=== PATIENT | female | born 1985 | race Two or more races ===

== ENCOUNTER 2023-09-18 11:49 | Emergency (ER) | payer MEDICAID, OTHER ==
[~2023-09-18] VITALS: Ht 157.5 cm; Wt 83.0 kg
[2023-09-18 12:31] VITALS: BP 129/74; PULSE 81; RESP 16; O2SAT 98
[2023-09-18] MEDS ORDERED: ACYC1TAB3 PO (13:25)
[2023-09-18] MEDS ORDERED: PRED20TA2 PO (13:25)
[2023-09-18] MEDS ORDERED: AUG875T PO (13:25)
== END 2023-09-18 13:54 | disposition home or self-care (01) ==
LOC: ER 11:49
DX: G51.0 Bell's palsy (principal); H66.91 Otitis media, unspecified, right ear; Z79.899 Other long term (current) drug therapy

== ENCOUNTER 2024-07-06 21:01 | Emergency (ER) | payer MEDICAID ==
[~2024-07-06] VITALS: Ht 157.5 cm; Wt 83.2 kg
[~2024-07-06 21:01] MED LIST: ACYC1TAB3 PO; AUG875T PO; PRED20TA2 PO
--- NOTE | 2024-07-06 21:48 | ED.PDOC ---
History of Present Illness HPI Comments 39-year-old female with no reported PMHx presents to the ED with a c/o weakness, fatigue, and palpitations x3 weeks. Patient states that she has been feeling worsening generalized weakness over the past 3 weeks that has also started to develop into fatigue. Patient reports that she is experiencing increasing SOB especially upon exertion. Patient denies any known sick contacts at home. Patient is tachycardic upon auscultation. No other symptoms or modifying factors present at this time. Time Seen by MD: 21:44 Primary Care Provider: ROSALES Reviewed Notes: Nurses Notes, Medications, Allergies Allergies: Coded Allergies: NO KNOWN ALLERGIES (Unverified , 07/06/24) Home Meds Active Scripts Acyclovir (Acyclovir) 800 Mg Tab, 800 MG PO TID, #21 TAB Prov:AMAURY BAUTISTA 09/18/23 Prednisone (Prednisone) 20 Mg Tab, 60 MG PO DAILY, #18 TAB Prov:AMAURY BAUTISTA 09/18/23 Amoxicillin & Pot Clavulanate (AUGMENTIN TABLET) 875 Mg Tb, 875 MG PO BID, #20 TAB Prov:AMAURY BAUTISTA 09/18/23 Information Source: Patient Mode of Arrival: Ambulatory Severity: Moderate Timing: Weeks Duration: Since onset Prehospital treatment: None Past Medical History PAST MEDICAL HISTORY: Denies Surgical History: Cholecystectomy 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 History Family History Family History: Reviewed,noncontributory to illness Social History Smoker: Non-Smoker Alcohol: Denies ETOH Use Drugs: Denies Drug Use Lives In: Home Constitutional: reports: fatigue, weakness; denies: chills, diaphoresis, fever, malaise, sweats, others EENTM: denies: blurred vision, double vision, ear bleeding, ear discharge, ear drainage, ear pain, ear ringing, eye pain, eye redness, hearing loss, mouth pain, mouth swelling, nasal discharge, nose bleeding, nose congestion, nose pain, photophobia, tearing, throat pain, throat swelling, voice changes, others Respiratory: reports: shortness of breath; denies: cough, hemoptysis, orthopnea, SOB at rest, SOB with excertion, stridor, wheezing, others Cardiovascular: reports: palpitations; denies: chest pain, dizzy spells, diaphoresis, Dyspnea on exertion, edema, irregular heart beat, left arm pain, lightheadedness, PND, syncope, others Gastrointestinal: denies: abdomen distended, abdominal pain, blood streaked bowels, constipated, diarrhea, dysphagia, difficulty swallowing, hematemesis, melena, nausea, poor appetite, poor fluid intake, rectal bleeding, rectal pain, vomiting, others Genitourinary: denies: abnormal vagina bleeding, burning, dyspareunia, dysuria, flank pain, frequency, hematuria, incontinence, pain, , vagina discharge, urgency, others Neurological: denies: dizziness, fainting, headache, left sided numbness, left sided weakness, numbness, paresthesia, pre-existing deficit, right sided numbness, right sided weakness, seizure, speech problems, tingling, tremors, weakness, others Musculoskeletal: denies: back pain, gout, joint pain, joint swelling, muscle pain, muscle stiffness, neck pain, others Integumetry: denies: bruises, change in color, change in hair/nails, dryness, laceration, lesions, lumps, rash, wounds, others Allergic/Immunocompromised: denies: Difficulty Healing, Frequent Infections, Hives, Itching, others Hematologic/Lymphatic: denies: anemia, blood clots, easy bleeding, easy bruising, swollen glands, others Endocrine: denies: excessive hunger, excessive sweating, excessive thirst, excessive urination, flushing, intolerance to cold, intolerance to heat, unexp lained weight gain, unexplained weight loss, others Psychiatric: denies: anxiety, bipolar disorder, depression, hopeless, panic disorder, schizophrenia, sleepless, suicidal, others All Other Systems: Reviewed and Negative Physical Exam General Appearance: No Apparent Distress, Normal HEENT: Normal ENT Inspection, Pharynx Normal, TMs Normal Neck: Full Range of Motion, Non-Tender, Normal, Normal Inspection Respiratory: Chest Non-Tender, Lungs Clear, No Accessory Muscle Use, No Respiratory Distress, Normal Breath Sounds Cardiovascular: No Edema, No JVD, No Murmur, No Gallop, Normal Peripheral Pulse s, Tachycardia Breast Exam: Deferred Gastrointestinal: No Organomegaly, Non Tender, No Pulsatile Mass, Normal Bowel Sounds, Soft Genitalia: Deferred Pelvic: Deferred Rectal: Deferred Extremities: No calf tenderness, Normal capillary refill, Normal inspection, Normal range of motion, Non-tender, No pedal edema Musculoskeletal : Apperance: Normal Neurologic: Alert, nut cracker II-XII nml as Tested, No Motor Deficits, Normal Affect, Normal Mood, No Sensory Deficits Cerebellar Function: Normal Reflexes: Normal Skin: Dry, Normal Color, Warm Lymphatic: No Adenopathy Was a procedure done? Was a procedure done?: No Differential Dx Considerations may include: OK, costochondritis, panic attack X-Ray, Labs, Meds, VS Vital Signs Date Time Temp Pulse Resp B/P (MAP) Pulse Ox O2 Delivery O2 Flow Rate FiO2 07/06/24 22:25 122 20 98 Room Air* 0 21 07/06/24 22:25 98.0 122 20 120/80 (93) 98 98.0 07/06/24 21:39 104 07/06/24 21:20 98.0 127 22 126/82 (97) 99 98.0 Lab Test 07/06/24 22:00 Range/Units White Blood Count 7.9 4.4-10.8 10^3/uL Red Blood Count 4.82 4.0-5.20 10^6/uL Hemoglobin 13.8 12.2-16.2 g/dL Hematocrit 41.1 36.0-46.0 % Mean Corpuscular Volume 85.3 80.0-100.0 fL Mean Corpuscular Hemoglobin 28.7 28.0-32.0 pg Mean Corpuscular Hemoglobin Concent 33.6 32.0-36.0 g/dL Red Cell Distribution Width 13.4 11.8-14.3 % Platelet Count 213 140-450 10^3/uL Mean Platelet Volume 10.0 6.9-10.8 fL Neutrophils (%) (Auto) 62.8 37.0-80.0 % Lymphocytes (%) (Auto) 28.7 10.0-50.0 % Monocytes (%) (Auto) 7.1 0.0-12.0 % Eosinophils (%) (Auto) 0.7 0.0-7.0 % Basophils (%) (Auto) 0.7 0.0-2.0 % Neutrophils # (Auto) 5.0 1.6-8.6 10 ^3/uL Lymphocytes # (Auto) 2.3 0.4-5.4 10 ^3/uL Monocytes # (Auto) 0.6 0-1.3 10 ^3/uL Eosinophils # (Auto) 0.1 0-0.8 10 ^3/uL Basophils # (Auto) 0.1 0-0.2 10 ^3/uL Nucleated Red Blood Cells 0.1 % Sodium Level 141 136-145 mmol/L Potassium Level 3.3 L 3.5-5.1 mmol/L Chloride Level 111 H 98-107 mmol/L Carbon Dioxide Level 18 L 20-31 mmol/L Anion Gap 12 5-15 Blood Urea Nitrogen 19 9-23 mg/dL Creatinine 0.86 0.550-1.02 mg/dL Glomerular Filtration Rate Calc 88 >90 mL/min BUN/Creatinine Ratio 22.1 H 10.0-20.0 Serum Glucose 103 74-106 mg/dL Calcium Level 9.9 8.7-10.4 mg/dL Total Bilirubin 0.6 0.2-1.0 mg/dL Aspartate Amino Transferase (AST) 17 13-40 U/L Alanine Aminotransferase (ALT) 17 7-40 U/L Alkaline Phosphatase 63 46-116 U/L Troponin I High Sensitivity < 3 L </=34 ng/L Total Protein 7.5 5.7-8.2 g/dL Albumin 4.3 3.2-4.8 g/dL Current Medications Medications (Trade) Dose Ordered Sig/Chicho Route Start Time Stop Time Status Last Admin Lorazepam (Ativan Inj) 1 mg ONCE ONCE IM 07/06/24 22:00 07/06/24 22:01 DC 07/06/24 22:00 X-Ray, Labs, Meds, VS Comment Imaging: X-rays and CT scans were reviewed and interpreted by this provider, imaging shows no fractures and no pathological disease. Pending radiology review. Laboratory: Labs reviewed and interpreted by this provider. No significant abnormalities noted. Patient has prior medical visits reviewed. Med reconciliation performed Vital signs reviewed Patient had good relief from Ativan. Time of 1ST Reevaluation: 22:14 Reevaluation 1ST: Improved Patient Education/Counseling: Diagnosis, Treatment, Need For Follow Up (Follow up with PCP next available appointment. Return to the emergency department if symptoms worsen.) Family Education/Counseling: No Family Present Departure 1 Departure Time of Disposition: 01:20 Impression: Primary Impression: Anxiety Disposition: 01 HOME / SELF CARE / HOMELESS Condition: Fair e-Prescriptions Alprazolam (Xanax) 0.5 Mg Tb 1 TAB PO BID PRN, #20 TAB Prov: SAVITA HARVEY 07/07/24 Discharged With: Self Critical Care Note Critical Care Time?: No Stability Stability form required: No I personally scribed for SAVITA HARVEY ([email or web address]) on 07/06/24 at 21:48. Electronically submitted by Norris Roy ([email or web address]). SAVITA HARVEY July 06, 2024 21:48
[2024-07-06] MEDS: LORazepam 2MG/ML-1ML VIAL IM ONE (22:00)
[2024-07-06 22:17] LABS: Basophils # (auto) 0.1 10 ^3/uL (0-0.2); Basophils % (auto) 0.7 % (0.0-2.0); Eosinophils # (auto) 0.1 10 ^3/uL (0-0.8); Eosinophils % (auto) 0.7 % (0.0-7.0); Hematocrit 41.1 % (36.0-46.0); Hemoglobin 13.8 g/dL (12.2-16.2); Lymphocytes # (auto) 2.3 10 ^3/uL (0.4-5.4); Lymphocytes % (auto) 28.7 % (10.0-50.0); Mean Corpuscular Hemoglobin 28.7 pg (28.0-32.0); Mean Corpuscular Hgb Conc. 33.6 g/dL (32.0-36.0); Mean Corpuscular Volume 85.3 fL (80.0-100.0); Monocytes # (auto) 0.6 10 ^3/uL (0-1.3); Monocytes % (auto) 7.1 % (0.0-12.0); Neutrophils % (auto) 62.8 % (37.0-80.0); Nucleated Red Blood Cells % 0.1 %; Platelet Count (auto) 213 10^3/uL (140-450); Red Blood Cells 4.82 10^6/uL (4.0-5.20); Red Cell Distribution Width 13.4 % (11.8-14.3); White Blood Cell 7.9 10^3/uL (4.4-10.8)
[2024-07-06 22:25] VITALS: BP 120/80; PULSE 122; RESP 20; TEMP 98; O2SAT 98
[2024-07-06 22:32] LABS: Alanine Aminotransferase 17 U/L (7-40); Albumin 4.3 g/dL (3.2-4.8); Alkaline Phosphatase 63 U/L (46-116); Anion Gap 12 (5-15); Aspartate Aminotransferase 17 U/L (13-40); BUN/Creatinine Ratio 22.1 (10.0-20.0); Blood Urea Nitrogen 19 mg/dL (9-23); Calcium 9.9 mg/dL (8.7-10.4); Glucose 103 mg/dL (74-106); Sodium 141 mmol/L (136-145); Total Protein 7.5 g/dL (5.7-8.2)
[2024-07-06 22:33] LABS: Bilirubin, Total 0.6 mg/dL (0.2-1.0)
[2024-07-06 22:53] LABS: Carbon Dioxide 18 mmol/L (20-31); Chloride 111 mmol/L (98-107); Potassium 3.3 mmol/L (3.5-5.1)
--- NOTE | 2024-07-06 23:09 | DVH ---
CHEST RADIOGRAPH Indication: dizzy Technique: Single frontal view of the chest was obtained COMPARISON: None FINDINGS: Lines and Tubes: None Lungs: Clear Pleura: No effusion. No pneumothorax. Cardiomediastinal contours: Unremarkable IMPRESSION: No abnormality demonstrated.
--- NOTE | 2024-07-06 23:53 | ECG ---
[facility] Test Date: 2024-07-06 Test Time: 21:39:49 Pat Name: ENMANUEL MCWILLIAMS Department: ED Room: Gender: F Business Intelligence Engineer: DORA : 1985 Requested By: SAVITA HARVEY Order Number: [id number] Reading MD: Measurements Intervals [place] Rate: 104 P: 47 LA: 151 QRS: 95 QRSD: 77 T: 46 QT: 327 QTc: 430 Interpretive Statements Sinus tachycardia Borderline right axis deviation Please click the below link to view image of tracing.
[2024-07-07] MEDS ORDERED: ALPR0.5T PO (01:21)
== END 2024-07-07 02:08 | disposition home or self-care (01) ==
LOC: ER 21:01
DX: F41.9 Anxiety disorder, unspecified (principal); Z90.49 Acquired absence of other specified parts of digestive tract
CPT/HCPCS: 36415; 71045; 80053; 84484; 85025; 93005; 96372; 99285; J2060

== ENCOUNTER 2024-07-15 22:40 | Inpatient (IN) | payer MEDICAID ==
[~2024-07-15] VITALS: Ht 157.5 cm; Wt 86.8 kg
[~2024-07-15 22:40] MED LIST changes: +ALPR0.5T PO
--- NOTE | 2024-07-15 23:41 | ED.PDOC ---
General HPI Comments HPI: Poor Historian. 39-year-old female presents to emergency department for two day history of right flank pain constant radiating to the suprapubic area associated with nausea and chills.. Patient is suspects she has a UTI. She has burning with urination and chills. She is tachycardic in triage. Appears uncomfortable. Patient states having similar symptoms in the past which was due to UTI. Past Medical History: Right kidney poor function. Past Surgical History: Cholecystectomy REVIEW OF SYSTEMS: CONSTITUTIONAL: Denies acute: fever, diaphoresis, HEAD: Denies acute: headache, photophobia Eyes: Denies acute: Double vision, vision loss, eye pain, eye discharge. EARS: Denies acute: tinnitus, hearing loss, ear discharge, ear pain, THROAT: Denies acute: sore throat, swelling, difficulty swallowing , pain with swallowing, change in voice. NECK: Denies acute: neck pain, neck swelling, stiff neck. HEART: Denies acute : chest pain, palpitations, LUNGS: Denies acute: SOB, wheezing, cough, hemoptysis ABDOMEN: Denies acute: Vomiting, diarrhea, melena , hematemesis, hematochezia SKIN: Denies acute: rash, redness, lesions, itchiness. EXTREMITIES: Denies acute: calf pain, numbness, tingling, weakness, denies pain in extremity. Denies acute: Low back pain. Neuro: Denies acute: focal neurological deficit, motor or sensory focal neurological deficit, tremors, seizure like activity, confusion, dizziness, change in mental status, loss of bowel or bladder function, cauda equina like symptoms. : Denies acute: hematuria, increase in urinary frequency. PSYCH: Denies acute: hallucination, suicidal ideation, homicidal ideation. FEMALE: Denies acute: abnormal vaginal bleeding, foul odor, unusual discharge. PHYSICAL EXAM: General: -----moderate---acute distress, awake and alert. Head: normocephalic, atraumatic. Neck: supple, trachea is midline, no swelling. Throat: Normal phonation. Eyes:, no erythema, no purulent discharge, no proptosis, no icterus. Heart: regular tachycardia, no significant murmur appreciated. Lungs: no apparent respiratory distress, Able to speak in full sentences. No wheezing, no rhonchi, no crackles. No stridors Clear to auscultation bilaterally. Abdomen: Suprapubic tender to palpation, non distended, soft, no guarding, no rebound, + bowel sounds. Neuro: Awake, Alert, oriented to name, self, situation, follows commands GCS=15. Speech is normal. Skin: no petechia, no purpura, no cyanosis, non-pale, not jaundice. Lower extremities: --no - Pitting edema no deformity, no focal swelling, no calf TTP. Makes eye contact. moves all four extremities. Face: no apparent facial droop. Right CVA tenderness to percussion Ambulating in the ED independently. ED COURSE: Time Seen by MD: 23:29 Primary Care Provider: ROSALES Reviewed notes: Nurses Notes, Medications, Allergies Allergies: Coded Allergies: NO KNOWN ALLERGIES (Unverified , 07/06/24) Home Meds Active Scripts Alprazolam (Xanax) 0.5 Mg Tb, 1 TAB PO BID PRN, #20 TAB Prov:SAVITA HARVEY 07/07/24 Acyclovir (Acyclovir) 800 Mg Tab, 800 MG PO TID, #21 TAB Prov:AMAURY BAUTISTA 09/18/23 Prednisone (Prednisone) 20 Mg Tab, 60 MG PO DAILY, #18 TAB Prov:AMAURY BAUTISTA 09/18/23 Amoxicillin & Pot Clavulanate (AUGMENTIN TABLET) 875 Mg Tb, 875 MG PO BID, #20 TAB Prov:AMAURY BAUTISTA 09/18/23 Information Source: Patient Past Medical History PAST MEDICAL HISTORY: Denies Surgical History: Cholecystectomy 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 Was a procedure done?: No Differential Diagnosis Kidney stone (Female): Other (Flank Pain;DDX include Nephrolethiasis, obstructive uropathy, kidney cancer, renal infarct, intraabdominal neoplasm, lower lobe pneumonia, retroperitoneal hemorrhage, pancreatitis, aneurysm, dissection, musculoskeletal, rib contusion/trauma, hematoma, PYLONEPHRITIS, muscle strain, spinal disease. IN A FEMALE) X-Ray, Labs, Meds, VS Vital Signs Date Time Temp Pulse Resp B/P (MAP) Pulse Ox O2 Delivery O2 Flow Rate FiO2 07/16/24 00:57 102 20 98 Room Air 07/16/24 00:57 102 20 97 Room Air* 0 21 07/16/24 00:57 97.6 103 20 94/66 (75) 98 97.6 07/16/24 00:05 98.1 129 18 123/70 (87) 98 98.1 Lab Test 07/15/24 23:40 07/15/24 23:31 Range/Units White Blood Count 9.0 4.4-10.8 10^3/uL Red Blood Count 4.94 4.0-5.20 10^6/uL Hemoglobin 14.3 12.2-16.2 g/dL Hematocrit 42.3 36.0-46.0 % Mean Corpuscular Volume 85.7 80.0-100.0 fL Mean Corpuscular Hemoglobin 28.9 28.0-32.0 pg Mean Corpuscular Hemoglobin Concent 33.7 32.0-36.0 g/dL Red Cell Distribution Width 13.4 11.8-14.3 % Platelet Count 174 140-450 10^3/uL Mean Platelet Volume 10.1 6.9-10.8 fL Neutrophils (%) (Auto) 86.7 H 37.0-80.0 % Lymphocytes (%) (Auto) 8.7 L 10.0-50.0 % Monocytes (%) (Auto) 4.5 0.0-12.0 % Eosinophils (%) (Auto) 0.0 0.0-7.0 % Basophils (%) (Auto) 0.1 0.0-2.0 % Neutrophils # (Auto) 7.8 1.6-8.6 10 ^3/uL Lymphocytes # (Auto) 0.8 0.4-5.4 10 ^3/uL Monocytes # (Auto) 0.4 0-1.3 10 ^3/uL Eosinophils # (Auto) 0 0-0.8 10 ^3/uL Basophils # (Auto) 0 0-0.2 10 ^3/uL Nucleated Red Blood Cells 0.0 % Sodium Level 137 136-145 mmol/L Potassium Level 3.1 L 3.5-5.1 mmol/L Chloride Level 105 98-107 mmol/L Carbon Dioxide Level 21 20-31 mmol/L Anion Gap 11 5-15 Blood Urea Nitrogen 9 9-23 mg/dL Creatinine 1.04 H 0.550-1.02 mg/dL Glomerular Filtration Rate Calc 70 >90 mL/min BUN/Creatinine Ratio 8.7 L 10.0-20.0 Serum Glucose 109 H 74-106 mg/dL Lactic Acid Level 1.2 0.4-2.0 mmol/L Calcium Level 9.3 8.7-10.4 mg/dL Magnesium Level 1.9 1.6-2.6 mg/dL Total Bilirubin 1.2 H 0.2-1.0 mg/dL Aspartate Amino Transferase (AST) 26 13-40 U/L Alanine Aminotransferase (ALT) 24 7-40 U/L Alkaline Phosphatase 67 46-116 U/L Troponin I High Sensitivity 6 </=34 ng/L Total Protein 7.9 5.7-8.2 g/dL Albumin 4.6 3.2-4.8 g/dL Lipase 34 12-53 U/L Urine Color Pending Urine Clarity Pending Urine pH Pending Urine Specific Coden Pending Urine Protein Pending Urine Ketones Pending Urine Blood Pending Urine Nitrite Pending Urine Bilirubin Pending Urine Urobilinogen Pending Urine Leukocyte Esterase Pending Urine RBC Pending Urine Microscopic WBC Pending Urine Squamous Epithelial Cells Pending Urine Bacteria Pending Urine Glucose Pending [place] [id number] Ph: [phone] DIAGNOSTIC IMAGING Diagnostic Imaging Report : [id number] Signed PATIENT: ENMANUEL SHELLACCT: [id number] UNIT: [id number] : 1985 LOC: ER ROOM / BED: / AGE / SEX: 39 / F ADM STATUS: REG ER SERVICE [id number] ORDERING PHYSICIAN: ALEXANDR BLACKBURN DO PROCEDURE(s): ABPL - CT AB PEL WO CON-NO ORAL OR IV REASON: tachy, flank pain, urinary symptoms chills ORDER NUMBER(s): [id number], ACCESSION NUMBER(s): [id number] Exam: CT CT AB PEL WO CON-NO ORAL OR IV History: tachy, flank pain, urinary symptoms chills Comparison Study: None Technique: Multidetector spiral CT of the abdomen was performed from lung bases to pubic symphysis. Imaging was performed without IV contrast. Axial, coronal and sagittal multiplanar reformats were obtained from the axial data set by the technologist. Radiation Dose : 1. Abdomen/Pelvis: CTDIvol mGy, DLP mGy*cm. Findings: Evaluation of solid organs is limited due to lack of intravenous contrast use. Lung Bases: No abnormality demonstrated. Liver: Liver is normal in size. No focal lesions noted. Gallbladder and Biliary Tree: Cholecystectomy. No biliary ductal dilatation. Spleen: No abnormality demonstrated. Pancreas: No abnormality demonstrated. Adrenal Glands: No abnormality demonstrated. Kidneys: No abnormality demonstrated in the left kidney. Atrophic right kidney. Bladder: Grossly unremarkable for degree of distention. Bowel: Stomach appears grossly unremarkable. No abnormally dilated or thick- walled loops of large or small bowel noted. Appendix not visualized. Ascites: Absent Lymphadenopathy: No evidence of lymphadenopathy. Abdominal Wall and Mesentery: Unremarkable. Vasculature: Unremarkable. Pelvic Organs: Unremarkable. Musculoskeletal: No bony lesions or fracture. IMPRESSION: No acute abdominal or pelvic findings. Radiation optimization: All CT scans at this facility use at least one of these dose optimization techniques: automated exposure control mA and/or kV adjustment per patient size (includes targeted exams where dose is matched to clinical indication) or iterative reconstruction. ATED BY: PAUL MCARTHUR MD DICTATED DATE/TIME: 07/16/2436 SIGNED BY: PAUL MCARTHUR MD SIGNED DATE/TIME: 07/16/2436 CC: Time of 1ST Reevaluation: 01:15 Reevaluation 1ST: Improved Patient Education/Counseling: Diagnosis, Treatment Family Education/Counseling: Other Comments Patient presented with the above HPI.-flank pain abdominal pain and urinary symptoms and tachycardia and chills-----workup was initiated. patient was found with the above mentioned diagnosis. the following medications were ordered: please refer to order lists of meds and tests obtained by myself Dr. Blackburn. Patient ED course and VS have been stabilized. Patient has been reassessed in the ED and remained in a stable condition. Pertinent incidental findings were discussed with the patient and/or family. Patient/family voices understanding and is agreeable with plan. Patient has been observed in the ED adequate length of time to insure improvement/stability. Escalation of care considered: Consideration of escalation to observation or admission Patient clinically appears to have pyelonephritis. Antibiotics and fluids were initiated. Patient was ADMITTED to the medicine team for further evaluation and treatment of their presentation. All the reports of any imaging studies that were ordered by myself were reviewed by myself. Departure 1 Departure Time of Disposition: 23:41 Impression: Primary Impression: Right flank pain Additional Impressions: Cystitis Pyelonephritis Hypokalemia Disposition: ADMITTED INPATIENT Admit to: Tele Condition: Guarded Discharged With: Self Critical Care Note Critical Care Time?: Yes (35 min-critical care time only) ALEXANDR BLACKBURN DO July 15, 2024 23:41
[2024-07-16] VITALS (10 sets, daily range): BP systolic 90–119; BP diastolic 46–69; PULSE 72–112; RESP 16–30; TEMP 97.5–101.2; O2SAT 97–99
[2024-07-16 00:31] LABS: Basophils # (auto) 0 10 ^3/uL (0-0.2); Basophils % (auto) 0.1 % (0.0-2.0); Eosinophils # (auto) 0 10 ^3/uL (0-0.8); Hematocrit 42.3 % (36.0-46.0); Hemoglobin 14.3 g/dL (12.2-16.2); Lymphocytes # (auto) 0.8 10 ^3/uL (0.4-5.4); Lymphocytes % (auto) 8.7 % (10.0-50.0); Mean Corpuscular Hemoglobin 28.9 pg (28.0-32.0); Mean Corpuscular Hgb Conc. 33.7 g/dL (32.0-36.0); Mean Corpuscular Volume 85.7 fL (80.0-100.0); Monocytes # (auto) 0.4 10 ^3/uL (0-1.3); Monocytes % (auto) 4.5 % (0.0-12.0); Neutrophils # (auto) 7.8 10 ^3/uL (1.6-8.6); Neutrophils % (auto) 86.7 % (37.0-80.0); Platelet Count (auto) 174 10^3/uL (140-450); Red Blood Cells 4.94 10^6/uL (4.0-5.20); Red Cell Distribution Width 13.4 % (11.8-14.3)
--- NOTE | 2024-07-16 00:39 | DVH ---
Exam: CT CT AB PEL WO CON-NO ORAL OR IV History: tachy, flank pain, urinary symptoms chills Comparison Study: None Technique: Multidetector spiral CT of the abdomen was performed from lung bases to pubic symphysis. Imaging was performed without IV contrast. Axial, coronal and sagittal multiplanar reformats were ob tained from the axial data set by the technologist. Radiation Dose : 1. Abdomen/Pelvis: CTDIvol mGy, DLP mGy*cm. Findings: Evaluation of solid organs is limited due to lack of intravenous contrast use. Lung Bases: No abnormality demonstrated. Liver: Liver is normal in size. No focal lesions noted. Gallbladder and Biliary Tree: Cholecystectomy. No biliary ductal dilatation. Spleen: No abnormality demonstrated. Pancreas: No abnormality demonstrated. Adrenal Glands: No abnormality demonstrated. Kidneys: No abnormality demonstrated in the left kidney. Atrophic right kidney. Bladder: Grossly unremarkable for degree of distention. Bowel: Stomach appears grossly unremarkable. No abnormally dilated or thick-walled loops of large or small bowel noted. Appendix not visualized. Ascites: Absent Lymphadenopathy: No evidence of lymphadenopathy. Abdominal Wall and Mesentery: Unremarkable. Vasculature: Unremarkable. Pelvic Organs: Unremarkable. Musculoskeletal: No bony lesions or fracture. IMPRESSION: No acute abdominal or pelvic findings. Radiation optimization: All CT scans at this facility use at least one of these dose optimization shania hniques: automated exposure control mA and/or kV adjustment per patient size (includes targeted exam s where dose is matched to clinical indication) or iterative reconstruction.
[2024-07-16 00:49] LABS: Alanine Aminotransferase 24 U/L (7-40); Albumin 4.6 g/dL (3.2-4.8); Alkaline Phosphatase 67 U/L (46-116); Anion Gap 11 (5-15); Aspartate Aminotransferase 26 U/L (13-40); BUN/Creatinine Ratio 8.7 (10.0-20.0); Calcium 9.3 mg/dL (8.7-10.4); Carbon Dioxide 21 mmol/L (20-31); Chloride 105 mmol/L (98-107); Lipase 34 U/L (12-53); Magnesium 1.9 mg/dL (1.6-2.6); Sodium 137 mmol/L (136-145); Total Protein 7.9 g/dL (5.7-8.2)
[2024-07-16 00:50] LABS: Bilirubin, Total 1.2 mg/dL (0.2-1.0)
[2024-07-16 00:52] LABS: Blood Urea Nitrogen 9 mg/dL (9-23); Glucose 109 mg/dL (74-106); Potassium 3.1 mmol/L (3.5-5.1)
[2024-07-16] MEDS: SODIUM CHLORIDE 0.9% 1,000 ML IV ONE ×4 (01:30→08:15)
[2024-07-16 01:38] LABS: Urine Bacteria MOD /hpf (None Seen); Urine Blood 1+ /uL (Negative); Urine Clarity Turbid (Clear); Urine Color Dark-Yellow (Yellow); Urine Protein, UAD Negative (Negative); Urine Specific Gravity 1.004 (1.001-1.035); Urine Squamous Epithelial Cell FEW /hpf (<5); Urine Urobilinogen 2 mg/dL (Negative); Urine WBC 45 /HPF (0-5); Urine pH 6.5 (5.0-9.0)
[2024-07-16] MEDS: cefTRIAXone 1GM/50ML D5W 50 ML IV ONE ×2 (02:11→07:30)
[2024-07-16] MEDS ORDERED: DOCUSATE SOD 100 MG CAP PO PRN (03:00)
[2024-07-16] MEDS ORDERED: MORPHINE SULFATE INJ 2 MG/ml SYRG IV PRN ×3 (03:00→03:15)
--- NOTE | 2024-07-16 03:09 | DVHHP2 ---
History of Present Illness History of Present Illness Patient is 39 years old female with recent history of UTI 1 month before came with a complaint of right flank pain. As per patient she has been having right flank pain severe in nature, 7/10, constant, crampy in nature. Radiating to the suprapubic region. Patient also endorsed dysuria, increased frequency and urgency of micturition for last couple of days. On further discussion patient reported nausea but no vomiting had chill at home but no fever. Patient denied any sick contact, acute joint pain or swelling, chest pain no shortness a breath . Initial lab workup revealed urinalysis positive for UTI with leukocyte esterase 3+, nitrite 1+, WBC 45, bacteria moderate. Hypokalemia with potassium 3.1, serum creatinine 1.04. Bilirubin 1.2. CT scan of the abdomen nonsignificant for acute abnormality. Past Medical History History of UTI 1 month before Past Social History Lives with the , Denies smoking/alcoholism/drug abuse Review of Systems Review of Systems - Allergy- NKDA Personal History/ Social History- Patient was seen today at the bedside. Patient Cardiovascular- deny acute chest pain or shortness of breath or cough or palpitation Respiratory denies cough or short of breath or wheezing Gastrointestinal- denies any rectal bleeding, nausea or vomiting Musculoskeletal-denies acute joint swelling or tenderness or redness Neurological- denies acute dysarthria, dysphagia, change in vision Psychiatry- denies depression or SI or HI Skin- denies acute rash or purpura Allergies: Coded Allergies: NO KNOWN ALLERGIES (Unverified , 07/06/24) Medications Current Medications Medications Dose Ordered Sig/Chicho Route Start Time Stop Time Status Last Admin Dose Admin Sodium Chloride 10 ml Q8HR IV 07/16/24 06:00 UNV Sodium Chloride 1,000 ml @ 120 mls/hr Q8H20M IV 07/16/24 03:00 UNV Ondansetron HCl 4 mg Q4HP PRN IV 07/16/24 03:00 UNV Docusate Sodium 100 mg BIDPRN PRN PO 07/16/24 03:00 UNV Enoxaparin Sodium 40 mg DAILY SC 07/16/24 10:00 UNV Acetaminophen 650 mg Q6HP PRN PO 07/16/24 03:00 UNV Morphine Sulfate 2 mg Q4HPRN PRN IV 07/16/24 03:00 UNV Morphine Sulfate 2 mg Q30M PRN IV 07/16/24 03:00 UNV Ceftriaxone Sodium/Dextrose 50 ml @ 50 mls/hr DAILY IV 07/16/24 10:00 UNV Pantoprazole Sodium 40 mg DAILY@0600 PO 07/16/24 06:00 UNV Exam Vital Signs Vital Signs Date Time Temp Pulse Resp B/P (MAP) Pulse Ox O2 Delivery O2 Flow Rate FiO2 07/16/24 00:57 102 20 98 Room Air 07/16/24 00:57 0 21 07/16/24 00:57 97.6 94/66 (75) 97.6 Exam General examination patient in distress due to pain HEENT- PEERLA, no acute nasal discharge Cardiovascular- S1-S2 audible, rate and rhythm regular, no murmur Respiratory- CTAB, no wheeze or rhonchi Gastrointestinal-nontender, bowel sound+. Nondistended Musculoskeletal-no acute joint swelling or tenderness or redness Renal system-suprapubic tenderness++, right renal angle tenderness++ Lower extremity- no leg edema Neurological- cranial nerves intact, no acute dysarthria or dysphagia Psychiatry- denies depression or SI or HI Skin- no acute rash or purpura Labs/Xrays Labs Test 07/15/24 23:40 07/15/24 23:31 Range/Units White Blood Count 9.0 4.4-10.8 10^3/uL Red Blood Count 4.94 4.0-5.20 10^6/uL Hemoglobin 14.3 12.2-16.2 g/dL Hematocrit 42.3 36.0-46.0 % Mean Corpuscular Volume 85.7 80.0-100.0 fL Mean Corpuscular Hemoglobin 28.9 28.0-32.0 pg Mean Corpuscular Hemoglobin Concent 33.7 32.0-36.0 g/dL Red Cell Distribution Width 13.4 11.8-14.3 % Platelet Count 174 140-450 10^3/uL Mean Platelet Volume 10.1 6.9-10.8 fL Neutrophils (%) (Auto) 86.7 H 37.0-80.0 % Lymphocytes (%) (Auto) 8.7 L 10.0-50.0 % Monocytes (%) (Auto) 4.5 0.0-12.0 % Eosinophils (%) (Auto) 0.0 0.0-7.0 % Basophils (%) (Auto) 0.1 0.0-2.0 % Neutrophils # (Auto) 7.8 1.6-8.6 10 ^3/uL Lymphocytes # (Auto) 0.8 0.4-5.4 10 ^3/uL Monocytes # (Auto) 0.4 0-1.3 10 ^3/uL Eosinophils # (Auto) 0 0-0.8 10 ^3/uL Basophils # (Auto) 0 0-0.2 10 ^3/uL Nucleated Red Blood Cells 0.0 % Sodium Level 137 136-145 mmol/L Potassium Level 3.1 L 3.5-5.1 mmol/L Chloride Level 105 98-107 mmol/L Carbon Dioxide Level 21 20-31 mmol/L Anion Gap 11 5-15 Blood Urea Nitrogen 9 9-23 mg/dL Creatinine 1.04 H 0.550-1.02 mg/dL Glomerular Filtration Rate Calc 70 >90 mL/min BUN/Creatinine Ratio 8.7 L 10.0-20.0 Serum Glucose 109 H 74-106 mg/dL Lactic Acid Level 1.2 0.4-2.0 mmol/L Calcium Level 9.3 8.7-10.4 mg/dL Magnesium Level 1.9 1.6-2.6 mg/dL Total Bilirubin 1.2 H 0.2-1.0 mg/dL Aspartate Amino Transferase (AST) 26 13-40 U/L Alanine Aminotransferase (ALT) 24 7-40 U/L Alkaline Phosphatase 67 46-116 U/L Troponin I High Sensitivity 6 </=34 ng/L Total Protein 7.9 5.7-8.2 g/dL Albumin 4.6 3.2-4.8 g/dL Lipase 34 12-53 U/L Urine Color Dark-yellow Yellow Urine Clarity Turbid H Clear Urine pH 6.5 5.0-9.0 Urine Specific [place] 1.004 1.001-1.035 Urine Protein Negative Negative Urine Ketones Negative Negative Urine Blood 1+ H Negative /uL Urine Nitrite 1+ H Negative Urine Bilirubin 1+ H Negative Urine Urobilinogen 2 H Negative mg/dL Urine Leukocyte Esterase 3+ Negative /uL Urine RBC 4 0 - 4 /hpf Urine Microscopic WBC 45 H 0-5 /HPF Urine Squamous Epithelial Cells Few <5 /hpf Urine Bacteria Mod H None Seen /hpf Urine Glucose Normal Normal mg/dL Assessment/Plan Assessment/Plan Assessment and plan Acute pyelonephritis Acute complicated cystitis Right flank pain and suprapubic pain likely due to acute complicated pyelonephritis with cystitis SIRS Obesity Hypokalemia Plan Ordered ceftriaxone 2 g IV daily Ordered normal saline IV as prescribed Ordered pain medicine Ordered urine culture and blood culture Ordered UDS Order TSH, A1c Goals of care, Code status ; discussed with >15 minutes PUD prophylaxis: Pantoprazole DVT prophylaxis: Lovenox Plan discussed with Dr. Diaz , nursing staff, Total time spent on patient evaluation, chart review, assessment and plan, discussion discussion >35 minutes Plan discussed with: Patient, Other (RB) My Orders Orders - MISAEL DIXON RESIDENT Procedure Category Date Status Time Admit ADMIT 07/16/24 Transmitted 02:56 Sodium Chloride Lock PHA 07/16/24 Logged (Saline Lock Ns) 06:00 Ondansetron Hcl PHA 07/16/24 Logged (Zofran) 03:00 Docusate Sodium PHA 07/16/24 Logged Capsule (Colace 03:00 Enoxaparin Sodium PHA 07/16/24 Logged (Lovenox) 10:00 Complete Blood Count LAB 07/17/24 Verified 04:00 Comprehensive LAB 07/17/24 Verified Metabolic Panel 04:00 Condition: Unstable SANDRA 07/16/24 In Process 02:56 Acetaminophen Tablet PHA 07/16/24 Logged (Tylenol Tablet) 03:00 Morphine Sulfate PHA 07/16/24 Logged Injection 03:00 Morphine Sulfate PHA 07/16/24 Logged Injection 03:00 Notify Of Changes SANDRA 07/16/24 In Process From Base 02:56 Journeyman Powerhouse [employer] For SANDRA 07/16/24 In Process 24 Hours 02:56 Sodium Chloride 0.9% PHA 07/16/24 Logged 03:00 Ceftriaxone 1gm/50ml PHA 07/16/24 Logged D5w (Rocephin) 03:00 Ceftriaxone 2gm/50ml PHA 07/16/24 Logged D5w (Rocephin 2gm/5 10:00 Sodium Chloride 0.9% PHA 07/16/24 Logged 03:00 Urine Bacterial YUE 07/16/24 Logged Culture 02:59 Blood Culture YUE 07/16/24 Logged 02:59 Hydromorphone PHA 07/16/24 Logged Injection (Dilaudid 03:00 Pantoprazole Tablet PHA 07/16/24 Logged (Protonix Tablet) 06:00 Pantoprazole Tablet PHA 07/16/24 Logged (Protonix Tablet) 03:00 Thyroid Stimulating LAB 07/16/24 Logged Hormone 03:00 Morphine Sulfate PHA 07/16/24 Transmitted Injection 03:15 Date of Service: July 16, 2024 Billing Provider: MANNY DIAZ MD Common Visit Codes: [id number] INP/OBS CARE (HIGH) Secondary Visit Codes: [id number] CARE PLAN 30 MINUTES MISAEL DIXON RESIDENT July 16, 2024 03:09
[2024-07-16] MEDS: ONDANSETRON HCL 4 MG/2 ML VIAL IV PRN (06:53)
[2024-07-16] MEDS: ONDANSETRON HCL 4 MG/2 ML VIAL IV ONE (07:30)
[2024-07-16] MEDS: PANTOPRAZOLE 40 MG TAB PO ONE (07:30)
[2024-07-16] MEDS: POTASSIUM CHL 20MEQ/100ML 100 ML IV SCH (07:30)
[2024-07-16] MEDS: SODIUM CHLOR 0.9% PF (SALINE LOCK) 10ML VIAL/SYR IV SCH (07:30)
[2024-07-16] MEDS: SODIUM CHLORIDE 0.9% 1,000 ML IV SCH (07:30)
[2024-07-16] MEDS: HYDROmorphone HCL 2 MG/ML VL/or syr IV ONE (07:30)
[2024-07-16] MEDS: PANTOPRAZOLE 40 MG TAB PO SCH (07:30)
[2024-07-16] MEDS: ACETAMINOPHEN 325 MG TAB PO PRN (08:23)
[2024-07-16] MEDS ORDERED: MORPHINE SULFATE 4 MG/ML SYR/VIAL IV PRN (09:15)
[2024-07-16] MEDS: cefTRIAXone 2GM/50ML D5W 50 ML IV SCH (10:46)
[2024-07-16] MEDS: ENOXAPARIN SOD 40 MG/0.4 ML SYRINGE SC SCH (10:46)
[2024-07-16 10:53] LABS: Sodium 141 mmol/L (136-145)
[2024-07-16 10:54] LABS: Anion Gap 5 (5-15)
[2024-07-16 10:59] LABS: Blood Urea Nitrogen 12 mg/dL (9-23)
[2024-07-16 11:00] LABS: Calcium 7.8 mg/dL (8.7-10.4); Carbon Dioxide 20 mmol/L (20-31); Chloride 116 mmol/L (98-107); Glucose 124 mg/dL (74-106)
[2024-07-16 12:29] LABS: Basophils # (auto) 0 10 ^3/uL (0-0.2); Basophils % (auto) 0.4 % (0.0-2.0); Eosinophils # (auto) 0 10 ^3/uL (0-0.8); Eosinophils % (auto) 0.2 % (0.0-7.0); Hematocrit 34.8 % (36.0-46.0); Hemoglobin 11.4 g/dL (12.2-16.2); Lymphocytes % (auto) 14.9 % (10.0-50.0); Mean Corpuscular Hemoglobin 28.5 pg (28.0-32.0); Mean Corpuscular Hgb Conc. 32.8 g/dL (32.0-36.0); Mean Corpuscular Volume 86.8 fL (80.0-100.0); Monocytes # (auto) 0.6 10 ^3/uL (0-1.3); Monocytes % (auto) 8.6 % (0.0-12.0); Neutrophils % (auto) 75.9 % (37.0-80.0); Nucleated Red Blood Cells % 0.1 %; Platelet Count (auto) 135 10^3/uL (140-450); Red Blood Cells 4.01 10^6/uL (4.0-5.20); Red Cell Distribution Width 13.9 % (11.8-14.3); White Blood Cell 6.6 10^3/uL (4.4-10.8)
--- NOTE | 2024-07-16 14:55 | DVHPNRES ---
Progress Note Date Seen: July 16, 2024 Resident Creating Document: JANKI MORALES RESIDENT Has the PT tested + for MRSA If YES, has PT been informed?: No Medical Necessity Reason Pt with a Central, PICC or Fol: No Medical Necessity Reason History of Present Illness Patient is 39 years old female with recent history of UTI 1 month before came with a complaint of right flank pain. As per patient she has been having right flank pain severe in nature, 7/10, constant, crampy in nature. Radiating to the suprapubic region. Patient also endorsed dysuria, increased frequency and urgency of micturition for last couple of days. On further discussion patient reported nausea but no vomiting had chill at home but no fever. Patient denied any sick contact, acute joint pain or swelling, chest pain no shortness a breath. Initial lab workup revealed urinalysis positive for UTI with leukocyte esterase 3+, nitrite 1+, WBC 45, bacteria moderate. Hypokalemia with potassium 3.1, serum creatinine 1.04. Bilirubin 1.2. CT scan of the abdomen nonsignificant for acute abnormality. Past Medical History: History of UTI 1 month before Past Social History: Lives with the , Denies smoking/alcoholism/drug abuse PN: 07/16 This is a 39 year old female with past medical history recurrent UTI presented to ED with a chief complaints of right flank pain. Patient narrated that she has been having the pain for the past few days severe in nature, 7/10, constant, crampy in nature.Patient mentioned that her right sided kidney is only at 6% functional. CT abdomen showed Kidneys: No abnormality demonstrated in the left kidney. Atrophic right kidney. CBC and CMP are unremarkable. Urinalysis however was positive for UTI was likely the patient has pyelonephritis. Urine sample submitted for urine culture and also.This morning during my time of evaluation patient is seems very code shivering with blood pressure running very low. We sent for blood culture we pending the results right now currently patient is on broad-spectrum antibiotics Subjective Review of Systems Constitutional: Denies fever, chills no feeling of malaise HEENT: Denies headache, ear pain, ear discharges, conjunctivitis, nasal discharge throat pain Cardiovascular: Denies chest pain, palpitation, orthopnea, PND, or pedal edema Respiratory: Denies shortness of breath, cough cough, sputum production, hemoptysis, GI: RIGHT flank, abdominal pain; nausea, vomiting, diarrhea, hematemesis, hematochezia, : Denies frequency, urgency, hematuria, Endocrine: Denies unintentional weight gain or weight loss, feeling of hot flashes, Berny: Denies easy bruising, bleeding disorders, epistaxis Musculoskeletal: Denies joint pains, muscle aches Psych: No evidence of depression, magdy, suicidal ideation Objective vital signs Vital Sign Date Time Temp Pulse Resp B/P (MAP) Pulse Ox O2 Delivery O2 Flow Rate FiO2 07/16/24 12:00 100 07/16/24 12:00 98.5 22 115/67 (83) 100 98.5 07/16/24 07:46 Room Air* 0 21 medications Current Medications Medications Dose Ordered Sig/Chicho Route Start Time Stop Time Status Last Admin Dose Admin Sodium Chloride 10 ml Q8HR IV 07/16/24 06:00 Sodium Chloride 1,000 ml @ 120 mls/hr Q8H20M IV 07/16/24 03:00 07/16/24 11:54 120 MLS/HR Ondansetron HCl 4 mg Q4HP PRN IV 07/16/24 03:00 07/16/24 06:53 4 MG Docusate Sodium 100 mg BIDPRN PRN PO 07/16/24 03:00 Enoxaparin Sodium 40 mg DAILY SC 07/16/24 10:00 07/16/24 10:46 40 MG Acetaminophen 650 mg Q6HP PRN PO 07/16/24 03:00 07/16/24 08:23 650 MG Ceftriaxone Sodium/Dextrose 50 ml @ 50 mls/hr DAILY IV 07/16/24 10:00 07/16/24 10:46 50 MLS/HR Pantoprazole Sodium 40 mg DAILY@0600 PO 07/16/24 06:00 Morphine Sulfate 2 mg Q6HPRN PRN IV 07/16/24 03:15 Cancel Morphine Sulfate 2 mg Q6HPRN PRN IV 07/16/24 09:15 Examination General Appearance: Alert, Oriented X3, Cooperative, chills HEENT: Atraumatic, PERRLA, EOMI, Mucous membrane moist/pink Respiratory: Clear to auscultation, Normal air movement Cardiovascular: Regular rate, Normal S1, Normal S2, No murmurs, no chest wall tenderness Abdominal: NO distention, no tenderness, bowel sounds present, no scars noted Renal system-suprapubic tenderness++, right renal angle tenderness++ Extremities: No clubbing, No cyanosis, No edema, Normal pulses, No tenderness/swelling Skin: No rashes, No breakdown, No significant lesion Neuro: Normal gait, Normal speech, Strength at 5/5 X4 ext, Normal tone, Sensation intact, Cranial nerves 3-12 NL, Reflexes 2+ Psych/Mental Status: Mental status NL, Mood NL laboratory and microbiology Laboratory Tests 07/16/24 12:16 07/16/24 08:55 Test 07/16/24 08:55 Range/Units Serum Glucose 124 H 74-106 mg/dL Problem List/Assessment/Plan Problem List/Assessment/Plan Assessment Acute pyelonephritis Acute complicated cystitis Right flank pain and suprapubic pain likely due to acute complicated pyelonephritis with cystitis SIRS Obesity Hypokalemia Prediabetes Plan Ceftriaxone 2 g IV daily Continue normal saline IV pending urine culture and blood culture Continue pain medicine PUD prophylaxis: Pantoprazole DVT prophylaxis: Lovenox Care discussed for more than16 minutes: Full code Case and plan discussed Dr. Mathew Plan discussed with: Patient My Orders My Orders Orders - JANKI MORALES Procedure Category Date Status Time Blood Culture YUE 07/16/24 In Process 08:36 Regular Diet DIET 07/16/24 Transmitted Lunch Date of Service: July 16, 2024 Billing Provider: TD MATHEW MD Common Visit Codes: [id number] INP/OBS CARE(HIGH) JANKI MORALES July 16, 2024 14:55 TD MATHEW MD July 16, 2024 19:07
[2024-07-16] MEDS: KETOROLAC TROMETH 30 MG/ML 1ML VIAL IV ONE (21:36)
[2024-07-17] VITALS (8 sets, daily range): BP systolic 97–109; BP diastolic 54–70; PULSE 77–104; RESP 16–19; TEMP 97.1–98.9; O2SAT 95–100
[2024-07-17 07:05] LABS: Basophils # (auto) 0 10 ^3/uL (0-0.2); Basophils % (auto) 0.2 % (0.0-2.0); Eosinophils # (auto) 0.1 10 ^3/uL (0-0.8); Hematocrit 34.7 % (36.0-46.0); Hemoglobin 11.5 g/dL (12.2-16.2); Lymphocytes # (auto) 1.2 10 ^3/uL (0.4-5.4); Lymphocytes % (auto) 18.3 % (10.0-50.0); Mean Corpuscular Hemoglobin 28.9 pg (28.0-32.0); Mean Corpuscular Hgb Conc. 33.3 g/dL (32.0-36.0); Monocytes # (auto) 0.6 10 ^3/uL (0-1.3); Monocytes % (auto) 10.2 % (0.0-12.0); Neutrophils # (auto) 4.5 10 ^3/uL (1.6-8.6); Neutrophils % (auto) 70.3 % (37.0-80.0); Platelet Count (auto) 120 10^3/uL (140-450); Red Blood Cells 3.98 10^6/uL (4.0-5.20); White Blood Cell 6.4 10^3/uL (4.4-10.8)
[2024-07-17 07:25] LABS: Alanine Aminotransferase 24 U/L (7-40); Albumin 3.3 g/dL (3.2-4.8); Alkaline Phosphatase 52 U/L (46-116); Anion Gap 6 (5-15); Aspartate Aminotransferase 24 U/L (13-40); BUN/Creatinine Ratio 9.5 (10.0-20.0); Carbon Dioxide 22 mmol/L (20-31); Glucose 97 mg/dL (74-106); Sodium 142 mmol/L (136-145); Total Protein 5.7 g/dL (5.7-8.2)
[2024-07-17 07:26] LABS: Bilirubin, Total 0.4 mg/dL (0.2-1.0); Blood Urea Nitrogen 7 mg/dL (9-23); Calcium 8.3 mg/dL (8.7-10.4); Chloride 114 mmol/L (98-107)
[2024-07-17] MEDS: KETOROLAC TROMETH 30 MG/ML 1ML VIAL IV PRN (12:23)
--- NOTE | 2024-07-17 18:08 | DVHPN2 ---
Subjective Feeling much better Reviewed: H&P, Labs Changes from previous H/P or p: No Changes Objective Vitals Vital Signs Date Time Temp Pulse Resp B/P (MAP) Pulse Ox O2 Delivery O2 Flow Rate FiO2 07/17/24 16:36 97.1 83 18 109/70 (83) 100 97.1 07/17/24 08:00 Room Air* 0 21 Intake/Output Intake and Output 07/17/24 07:00 Intake Total 2005 ml Balance 2005 ml Intake Oral 955 ml IV Total 1050 ml # Voids 4 General Appearance: Alert, Oriented X3 Lungs: Clear to auscultation Cardiovascular: Regular rate, Normal S1 Medications Current Medications Medications Dose Ordered Sig/Chicho Route Start Time Stop Time Status Last Admin Dose Admin Sodium Chloride 10 ml Q8HR IV 07/16/24 06:00 07/17/24 14:00 10 ML Sodium Chloride 1,000 ml @ 120 mls/hr Q8H20M IV 07/16/24 03:00 07/17/24 11:28 120 MLS/HR Ondansetron HCl 4 mg Q4HP PRN IV 07/16/24 03:00 07/16/24 06:53 4 MG Docusate Sodium 100 mg BIDPRN PRN PO 07/16/24 03:00 Enoxaparin Sodium 40 mg DAILY SC 07/16/24 10:00 07/17/24 09:23 40 MG Acetaminophen 650 mg Q6HP PRN PO 07/16/24 03:00 07/16/24 19:35 650 MG Ceftriaxone Sodium/Dextrose 50 ml @ 50 mls/hr DAILY IV 07/16/24 10:00 07/17/24 09:19 50 MLS/HR Pantoprazole Sodium 40 mg DAILY@0600 PO 07/16/24 06:00 07/17/24 05:22 40 MG Morphine Sulfate 2 mg Q6HPRN PRN IV 07/16/24 03:15 Cancel Ketorolac Tromethamine 15 mg Q6HPRN PRN IV 07/17/24 11:15 07/22/24 11:14 07/17/24 12:23 15 MG Laboratory Results Laboratory Tests 07/17/24 06:38 Chemistry Test 07/17/24 06:38 Albumin 3.3 g/dL (3.2-4.8) Calcium Level 8.3 mg/dL (8.7-10.4) L Total Protein 5.7 g/dL (5.7-8.2) LFT Test 07/17/24 06:38 Alanine Aminotransferase (ALT) 24 U/L (7-40) Alkaline Phosphatase 52 U/L (46-116) Aspartate Amino Transferase (AST) 24 U/L (13-40) Total Bilirubin 0.4 mg/dL (0.2-1.0) Urinalysis Test 07/15/24 23:31 Urine Color Dark-yellow (Yellow) Urine Clarity Turbid (Clear) H Urine pH 6.5 (5.0-9.0) Urine Specific [place] 1.004 (1.001-1.035) Urine Protein Negative (Negative) Urine Ketones Negative (Negative) Urine Blood 1+ /uL (Negative) H Urine Nitrite 1+ (Negative) H Urine Bilirubin 1+ (Negative) H Urine Urobilinogen 2 mg/dL (Negative) H Urine Leukocyte Esterase 3+ /uL (Negative) Urine RBC 4 /hpf (0 - 4) Urine Microscopic WBC 45 /HPF (0-5) H Urine Squamous Epithelial Cells Few /hpf (<5) Urine Bacteria Mod /hpf (None Seen) H Urine Glucose Normal mg/dL (Normal) Microbiology Microbiology Date/Time Source Procedure Growth Status 07/16/24 09:03 Blood Blood Culture - Preliminary NO GROWTH AFTER 24 HOURS OF INCUBATION. Resulted 07/16/24 06:15 Nose MRSA Screen - Final Complete 07/15/24 23:31 Voided Urine Urine Culture - Preliminary Resulted Assessment/Plan Assessment/Plan Acute pyelonephritis Acute complicated cystitis Right flank pain and suprapubic pain likely due to acute complicated pyelonephritis with cystitis SIRS Obesity Hypokalemia Prediabetes Plan Ceftriaxone 2 g IV daily Continue normal saline IV pending urine culture and blood culture Continue pain medicine Plan discussed with: Patient My Orders Orders - TD MILLER MD Procedure Category Date Status Time Ketorolac Injection PHA 07/17/24 In Process (Toradol Injection) 11:15 Date of Service: July 17, 2024 Billing Provider: TD MILLER MD Common Visit Codes: [id number] INP/OBS CARE(HIGH) TD MILLER MD July 17, 2024 18:08
[2024-07-18] VITALS (8 sets, daily range): BP systolic 101–131; BP diastolic 54–74; PULSE 74–93; RESP 16–20; TEMP 98–98.5; O2SAT 95–98
--- NOTE | 2024-07-18 17:50 | DVHPNRES ---
Progress Note Date Seen: Jul 18, 2024 Resident Creating Document: JANKI MORALES RESIDENT Has the PT tested + for MRSA If YES, has PT been informed?: No Medical Necessity Reason Pt with a Central, PICC or Fol: No Medical Necessity Reason 07/18 Patient is seen and examined today at the bedside feeling a little better pain. She still continues to complain of pain rated 4/10. Her urine culture is positive of UT. Patient did not have any fever or chills just pain located on the right flank pain. Of note, patient has had this current problem since the age of 2. she does not remember ever seeing a urologist. We will recommend that patient follow outpatient with urologist for on anatomical assessment of the cause of this recurrent UTI. Patient said she gets UTI infection at least once a month this is really of high concern and patient is to follow up patient with Urology. Subjective Review of Systems Constitutional: Denies fever no chills no feeling of malaise HEENT: Denies headache, ear pain, ear discharges, conjunctivitis, nasal discharge throat pain Cardiovascular: Denies chest pain, palpitation, orthopnea, PND, or pedal edema Respiratory: Denies shortness of breath, cough cough, sputum production, hemoptysis, GI: Right flank pain, nausea, vomiting, diarrhea, hematemesis, hematochezia, : Denies frequency, urgency, hematuria, Endocrine: Denies unintentional weight gain or weight loss, feeling of hot flashes, Berny: Denies easy bruising, bleeding disorders, epistaxis Musculoskeletal: Denies joint pains, muscle aches Psych: No evidence of depression, magdy, suicidal ideation Objective vital signs Vital Sign Date Time Temp Pulse Resp B/P (MAP) Pulse Ox O2 Delivery O2 Flow Rate FiO2 07/18/24 17:00 98.5 91 18 118/74 (89) 95 98.5 07/18/24 07:55 Room Air* 0 21 Total Intake and Output 07/17/24 07/17/24 07/18/24 15:00 23:00 07:00 Intake Total 50 ml 2500 ml 480 ml Output Total 250 ml Balance 50 ml 2500 ml 230 ml medications Current Medications Medications Dose Ordered Sig/Chicho Route Start Time Stop Time Status Last Admin Dose Admin Sodium Chloride 10 ml Q8HR IV 07/16/24 06:00 07/18/24 12:06 10 ML Ondansetron HCl 4 mg Q4HP PRN IV 07/16/24 03:00 07/16/24 06:53 4 MG Docusate Sodium 100 mg BIDPRN PRN PO 07/16/24 03:00 Enoxaparin Sodium 40 mg DAILY SC 07/16/24 10:00 07/18/24 09:20 40 MG Acetaminophen 650 mg Q6HP PRN PO 07/16/24 03:00 07/16/24 19:35 650 MG Ceftriaxone Sodium/Dextrose 50 ml @ 50 mls/hr DAILY IV 07/16/24 10:00 07/18/24 09:20 50 MLS/HR Pantoprazole Sodium 40 mg DAILY@0600 PO 07/16/24 06:00 07/18/24 06:30 40 MG Morphine Sulfate 2 mg Q6HPRN PRN IV 07/16/24 03:15 Cancel Ketorolac Tromethamine 15 mg Q6HPRN PRN IV 07/17/24 11:15 07/22/24 11:14 07/18/24 02:07 15 MG Examination General Appearance: Alert, Oriented X3, Cooperative, No acute distress HEENT: Atraumatic, PERRLA, EOMI, Mucous membrane moist/pink Respiratory: Clear to auscultation, Normal air movement Cardiovascular: Regular rate, Normal S1, Normal S2, No murmurs, no chest wall tenderness Abdominal: right flank tenderness, right kidney atrophy, bowel sounds present, no scars noted Extremities: No clubbing, No cyanosis, No edema, Normal pulses, No tenderness/swelling Skin: No rashes, No breakdown, No significant lesion Neuro: Normal gait, Normal speech, Strength at 5/5 X4 ext, Normal tone, Sensation intact, Cranial nerves 3-12 NL, Reflexes 2+ Psych/Mental Status: Mental status NL, Mood NL laboratory and microbiology Laboratory Tests 07/17/24 06:38 Test 07/17/24 06:38 Range/Units Serum Glucose 97 74-106 mg/dL Microbiology Date/Time Source Procedure Growth Status 07/16/24 09:03 Blood Blood Culture - Preliminary NO GROWTH AFTER 48 HOURS OF INCUBATION. Resulted 07/16/24 06:15 Nose MRSA Screen - Final Complete 07/15/24 23:31 Voided Urine Urine Culture - Final Complete Labs and/or images reviewed: Labs reviewed by me, Image(s) reviewed by me Problem List/Assessment/Plan Problem List/Assessment/Plan Assessment Acute pyelonephritis Acute complicated cystitis Right flank pain and suprapubic pain likely due to acute complicated pyelonephritis with cystitis Suspected sepsis due to above Obesity Hypokalemia Prediabetes Acute anemia,like dilutional Plan Ceftriaxone 2 g IV daily Continue normal saline IV Avoid nephrotoxic agents Pending urine culture and blood culture Continue pain medicine PUD prophylaxis: Pantoprazole DVT prophylaxis: Lovenox Goals of care discussed for 20 minutes: Full code Case and plan discussed Dr. Elizabeth Plan discussed with: Patient, Other (RN) My Orders My Orders Orders - JANKI MORALES RESIDENT Procedure Category Date Status Time Transfer Orders XFER 07/18/24 Transmitted 08:05 Addendum Addendum Addendum I was physically present for the new portions of the service provided to patient by THE RESIDENT. I have reviewed the documentation, discussed the case with resident and agree with the resident's documentation except as noted. Also the patient's clinical case was discussed with the patient's nurse. This medical document was created using an electronic medical record system with computerized dictation system. Although this document has been carefully reviewed, there might still be some phonetic and typographical errors. These areas are purely typographical due to imperfections of the software programs, and do not reflect any compromise in the patient's medical care. Late signature. Date of Service: Jul 18, 2024 Billing Provider: SARA ELIZABETH MD Common Visit Codes: [id number] INP/OBS CARE(HIGH) Secondary Visit Codes: [id number] CARE PLAN 30 MINUTES (20 minutes) JANKI MORALES Jul 18, 2024 17:50 SARA ELIZABETH MD Jul 19, 2024 05:07
[2024-07-19] VITALS (8 sets, daily range): BP systolic 103–127; BP diastolic 55–73; PULSE 82–89; RESP 16–18; TEMP 98.1–99; O2SAT 94–98
[2024-07-19] MEDS ORDERED: CEPH250C PO (14:02)
--- NOTE | 2024-07-19 16:00 | DVHDSRES ---
Discharge Summary Date of Admission Resident Creating Document: JANKI MORALES RESIDENT July 16, 2024 at 02:56 Date of Discharge: Jul 19, 2024 Labs/Diagnostic Data: Laboratory Results Test 07/17/24 06:38 07/15/24 23:40 07/15/24 23:31 White Blood Count 6.4 10^3/uL (4.4-10.8) Red Blood Count 3.98 10^6/uL (4.0-5.20) Hemoglobin 11.5 g/dL (12.2-16.2) Hematocrit 34.7 % (36.0-46.0) Mean Corpuscular Volume 87.0 fL (80.0-100.0) Mean Corpuscular Hemoglobin 28.9 pg (28.0-32.0) Mean Corpuscular Hemoglobin Concent 33.3 g/dL (32.0-36.0) Red Cell Distribution Width 14.0 % (11.8-14.3) Platelet Count 120 10^3/uL (140-450) Mean Platelet Volume 10.3 fL (6.9-10.8) Neutrophils (%) (Auto) 70.3 % (37.0-80.0) Lymphocytes (%) (Auto) 18.3 % (10.0-50.0) Monocytes (%) (Auto) 10.2 % (0.0-12.0) Eosinophils (%) (Auto) 1.0 % (0.0-7.0) Basophils (%) (Auto) 0.2 % (0.0-2.0) Neutrophils # (Auto) 4.5 10 ^3/uL (1.6-8.6) Lymphocytes # (Auto) 1.2 10 ^3/uL (0.4-5.4) Monocytes # (Auto) 0.6 10 ^3/uL (0-1.3) Eosinophils # (Auto) 0.1 10 ^3/uL (0-0.8) Basophils # (Auto) 0 10 ^3/uL (0-0.2) Nucleated Red Blood Cells 0.0 % Sodium Level 142 mmol/L (136-145) Potassium Level 4.0 mmol/L (3.5-5.1) Chloride Level 114 mmol/L (98-107) Carbon Dioxide Level 22 mmol/L (20-31) Anion Gap 6 (5-15) Blood Urea Nitrogen 7 mg/dL (9-23) Creatinine 0.74 mg/dL (0.550-1.02) Glomerular Filtration Rate Calc 105 mL/min (>90) BUN/Creatinine Ratio 9.5 (10.0-20.0) Serum Glucose 97 mg/dL (74-106) Calcium Level 8.3 mg/dL (8.7-10.4) Total Bilirubin 0.4 mg/dL (0.2-1.0) Aspartate Amino Transferase (AST) 24 U/L (13-40) Alanine Aminotransferase (ALT) 24 U/L (7-40) Alkaline Phosphatase 52 U/L (46-116) Total Protein 5.7 g/dL (5.7-8.2) Albumin 3.3 g/dL (3.2-4.8) Hemoglobin A1c 5.3 % A1C (<5.7) Lactic Acid Level 1.2 mmol/L (0.4-2.0) Magnesium Level 1.9 mg/dL (1.6-2.6) Troponin I High Sensitivity 6 ng/L (</=34) Lipase 34 U/L (12-53) Thyroid Stimulating Hormone (TSH) 0.56 uIU/mL (0.55-4.78) Urine Color Dark-yellow (Yellow) Urine Clarity Turbid (Clear) Urine pH 6.5 (5.0-9.0) Urine Specific [place] 1.004 (1.001-1.035) Urine Protein Negative (Negative) Urine Ketones Negative (Negative) Urine Blood 1+ /uL (Negative) Urine Nitrite 1+ (Negative) Urine Bilirubin 1+ (Negative) Urine Urobilinogen 2 mg/dL (Negative) Urine Leukocyte Esterase 3+ /uL (Negative) Urine RBC 4 /hpf (0 - 4) Urine Microscopic WBC 45 /HPF (0-5) Urine Squamous Epithelial Cells Few /hpf (<5) Urine Bacteria Mod /hpf (None Seen) Urine Glucose Normal mg/dL (Normal) Other Laboratory Tests 07/17/24 06:38 Brief Hx & Hospital Course: Patient is 39 years old female with recent history of UTI 1 month before came with a complaint of right flank pain. As per patient she has been having right flank pain severe in nature, 7/10, constant, crampy in nature. Radiating to the suprapubic region. Patient also endorsed dysuria, increased frequency and urgency of micturition for last couple of days. On further discussion patient reported nausea but no vomiting had chill at home but no fever. Patient denied any sick contact, acute joint pain or swelling, chest pain no shortness a breath. Initial lab workup revealed urinalysis positive for UTI with leukocyte esterase 3+, nitrite 1+, WBC 45, bacteria moderate. Hypokalemia with potassium 3.1, serum creatinine 1.04. Bilirubin 1.2. CT scan of the abdomen nonsignificant for acute abnormality. Hospital course: Patient was admitted at the line of pyelonephritis/complicated UTI. Abdominal CT scan performed, showed right atrophic kidney otherwise unremarkable. Patient was IV antibiotic Rocephin, IV normal saline and pain control. Urinalysis shows UTI picture but urine cultures growth mixed. On 07/19/2024, the patient was feeling better since admission. Discharge plan discussed with the patient and the patient discharged home. Discharge plan: Keflex 500 mg b.i.d. for 7 days Follow up with the PCP within 1 week of the discharge Condition at Discharge: Good Final Diagnosis/Problems List Right flank pain, due to pyelonephritis Sepsis, likely due to UTI Acute complicated UTI /pyelonephritis History of recurrent UTI Obesity, grade 2 Hypokalemia Prediabetes Discharge Disposition: Home Discharge Instruct/Medications Diet: Renal Activity: No Restrictions, As Tolerated Follow Up/Referral: Follow up with the PCP within 1 week of discharge Medications: Keflex 500 mg b.i.d. for 7 days Continue home med Discharge Statement: "Patient was advised to return to the ER or call 911 if any headaches, dizziness, shortness of breath, chest pain, abdominal pain, bleeding, fevers, or worsening of medical condition. Patient was counseled about treatment plan, medications, possible side effects, patientverbalized understanding. All questions were answered to the best of my ability. This discharge took greater then 30 minutes in planning, reviewing documentation, counseling the patient, and discussing with other team members." ASSESSMENT ASSESSMENT Assessment Pyelonephritis Date of Service: Jul 19, 2024 Billing Provider: ELSY HIGH MD Common Visit Codes: 67892-AIX/OBS DISCH DAY >30min DEEJAY PADILLA RESDIENT Jul 19, 2024 16:00 ELSY HIGH MD Jul 20, 2024 09:18
== END 2024-07-19 17:00 | disposition home or self-care (01) | DRG 720 ==
LOC: ER 22:40 → OVERFLOW 07-16 02:56 → TELE-WESTW 07-16 14:38 → WEST WING 07-19 08:59
PROVIDERS: ADMIT Student in an Organized Health Care Education/Training Program; ATTEND Emergency Medicine
DX: A41.9 Sepsis, unspecified organism (principal); R71.0 Precipitous drop in hematocrit; E66.9 Obesity, unspecified; N10 Acute pyelonephritis; E87.6 Hypokalemia; R73.03 Prediabetes; Z68.1 Body mass index [BMI] 19.9 or less, adult
CPT/HCPCS: 36415; 74176; 80048; 80053; 81001; 83036; 83605; 83690; 83735; 84443; 84484; 85025; 87040; 87081; 87086; 99291; G0378; J1885; J2405

== ENCOUNTER 2024-07-29 09:10 | Emergency (ER) | payer MEDICAID ==
[~2024-07-29] VITALS: Ht 157.5 cm; Wt 80.8 kg
[~2024-07-29 09:10] MED LIST changes: -ACYC1TAB3 PO; -AUG875T PO; +CEPH250C PO; -PRED20TA2 PO
--- NOTE | 2024-07-29 09:55 | ED.PDOC ---
REHAB NURSE HPI Comments A 39 year old female presents to the ED c/o pelvic pain. Patient states she is currently and has confirmed with six positive at home tests and has been experiencing pelvic cramping and vaginal spotting for the past 2 days. Patient was here in this ED for UTI symptoms 2 weeks ago where she was admitted for a UTI. Patient denies dysuria, hematuria, flank pain, fever, SOB, chest pain, nausea, vomiting, diarrhea, headache, dizziness. No other symptoms or modifying factors reported at this time. Patient is alert and oriented x4 and has a stable gait. Chief Complaint: Pelvic Pain Time Seen by MD: 09:13 Reviewed Notes: Nurses Notes, Medications, Allergies Allergies: Coded Allergies: Acetaminophen (Verified Allergy, Unknown, 07/29/24) Hydrocodone (Verified Allergy, Unknown, 07/29/24) Codeine (Verified Adverse Reaction, Unknown, PAIN, 07/16/24) Home Meds Active Scripts Cephalexin (KEFLEX CAPSULE) 250 Mg Cp, 500 MG PO BID for 7 Days, #14 CAP Prov:DEEJAY PADILLA RESDIJARET 07/19/24 Alprazolam (Xanax) 0.5 Mg Tb, 1 TAB PO BID PRN, #20 TAB Prov:SAVITA HARVEY 07/07/24 Information Source: Patient Mode of Arrival: Ambulatory Timing: Days Prehospital treatment: None Severity: Moderate Vaginal Discharge: None Vaginal Lesions: None Bleeding Quality: Bright Red Vaginal Mass: None Onset Of Mass/Bleeding: Spontaneous Sexual Activity: Last Consensual [place]: Unknown Control: None History of: Current Blood Type: Unknown Symptoms of Possible : None Associated Signs and Symptoms: Vaginal Bleeding Past Medical History PAST MEDICAL HISTORY: UTI'S Past Medical History (Other): Irregular menstrual periods Surgical History: Cholecystectomy FACTORY CLERK History: No Pertinent FACTORY CLERK History Family History Family History: Reviewed,noncontributory to illness Social History Smoker: Non-Smoker Alcohol: Denies ETOH Use Drugs: Denies Drug Use Lives In: Home Constitutional: denies: chills, diaphoresis, fatigue, fever, malaise, sweats, weakness, others EENTM: denies: blurred vision, double vision, ear bleeding, ear discharge, ear drainage, ear pain, ear ringing, eye pain, eye redness, hearing loss, mouth pain, mouth swelling, nasal discharge, nose bleeding, nose congestion, nose pain, photophobia, tearing, throat pain, throat swelling, voice changes, others Respiratory: denies: cough, hemoptysis, orthopnea, SOB at rest, shortness of breath, SOB with excertion, stridor, wheezing, others Cardiovascular: denies: chest pain, dizzy spells, diaphoresis, Dyspnea on exertion, edema, irregular heart beat, left arm pain, lightheadedness, palpitations, PND, syncope, others Gastrointestinal: denies: abdomen distended, abdominal pain, blood streaked bowels, constipated, diarrhea, dysphagia, difficulty swallowing, hematemesis, melena, nausea, poor appetite, poor fluid intake, rectal bleeding, rectal pain, vomiting, others Genitourinary: reports: abnormal vagina bleeding, pain (pelvic cramping); denies: burning, dyspareunia, dysuria, flank pain, frequency, hematuria, incontinence, , vagina discharge, urgency, others Neurological: denies: dizziness, fainting, headache, left sided numbness, left sided weakness, numbness, paresthesia, pre-existing deficit, right sided numbness, right sided weakness, seizure, speech problems, tingling, tremors, weakness, others Musculoskeletal: denies: back pain, gout, joint pain, joint swelling, muscle pain, muscle stiffness, neck pain, others Integumetry: denies: bruises, change in color, change in hair/nails, dryness, laceration, lesions, lumps, rash, wounds, others Allergic/Immunocompromised: denies: Difficulty Healing, Frequent Infections, Hives, Itching, others Hematologic/Lymphatic: denies: anemia, blood clots, easy bleeding, easy bruising, swollen glands, others Endocrine: denies: excessive hunger, excessive sweating, excessive thirst, excessive urination, flushing, intolerance to cold, intolerance to heat, unexplained weight gain, unexplained weight loss, others Psychiatric: denies: anxiety, bipolar disorder, depression, hopeless, panic disorder, schizophrenia, sleepless, suicidal, others All Other Systems: Reviewed and Negative Physical Exam General Appearance: No Apparent Distress, Normal HEENT: Normal ENT Inspection, Pharynx Normal, TMs Normal Neck: Full Range of Motion, Non-Tender, Normal, Normal Inspection Respiratory: Chest Non-Tender, Lungs Clear, No Accessory Muscle Use, No Respiratory Distress, Normal Breath Sounds Cardiovascular: No Edema, No JVD, No Murmur, No Gallop, Normal Peripheral Pulses, Regular Rate/Rhythm Breast Exam: Deferred Gastrointestinal: No Organomegaly, Non Tender, No Pulsatile Mass, Normal Bowel Sounds, Soft Genitalia: Deferred Pelvic: Deferred Rectal: Deferred Extremities: No calf tenderness, Normal capillary refill, Normal inspection, Normal range of motion, Non-tender, No pedal edema Musculoskeletal : Apperance: Normal Neurologic: Alert, shaft headman II-XII nml as Tested, No Motor Deficits, Normal Affect, Normal Mood, No Sensory Deficits Cerebellar Function: Normal Reflexes: Normal Skin: Dry, Normal Color, Warm Lymphatic: No Adenopathy Was a procedure done? Was a procedure done?: No Differential Diagnosis (FACTORY CLERK) Vaginal Bleeding: - Incomplete, - Missed, - Threatened, Dysmenorrhea, Menstrual Bleeding, UTI, Vaginitis Mass / Lesion: N/A Vaginal Discharge: N/A X-Ray, Labs, Meds, VS Vital Signs Date Time Temp Pulse Resp B/P (MAP) Pulse Ox O2 Delivery O2 Flow Rate FiO2 07/29/24 13:29 97.8 80 18 135/80 (98) 100 97.8 07/29/24 11:46 84 24 99 Room Air* 0 21 07/29/24 11:04 84 24 99 Room Air 07/29/24 11:04 97.8 84 24 128/71 (90) 99 97.8 07/29/24 09:25 97.9 107 18 125/89 (101) 97 97.9 Lab Test 07/29/24 10:54 07/29/24 09:27 Range/Units Beta HCG, Quantitative 129.7 H 1.5-4.2 mIU/mL Urine Color Yellow Yellow Urine Clarity Turbid H Clear Urine pH 6.5 5.0-9.0 Urine Specific [place] 1.022 1.001-1.035 Urine Protein Trace H Negative Urine Ketones Negative Negative Urine Blood 3+ H Negative /uL Urine Nitrite Negative Negative Urine Bilirubin Negative Negative Urine Urobilinogen Normal Negative mg/dL Urine Leukocyte Esterase 3+ Negative /uL Urine RBC 52 0 - 4 /hpf Urine Microscopic WBC 12 H 0-5 /HPF Urine Squamous Epithelial Cells Mod <5 /hpf Urine Bacteria Few H None Seen /hpf Urine Mucus Few None Seen Urine Glucose Normal Normal mg/dL Urine Test Positive Negative Current Medications Medications (Trade) Dose Ordered Sig/Chicho Route Start Time Stop Time Status Last Admin Cephalexin (Keflex Capsule) 500 mg ONCE ONCE PO 07/29/24 10:45 07/29/24 10:53 DC 07/29/24 11:44 OB ULTRASOUND <14 WEEKS: HISTORY: , vaginal bleed TECHNIQUE: Multiple real-time grayscale sonographic images of the pelvis with duplex doppler color flow, spectral and M-mode analysis. TRANSDUCERS: Transabdominal and transvaginal FINDINGS: The uterus measures 9.2 X 5.4 cm. The endometrium measures 5mm. There is trace fluid in the endometrial canal. Right ovary measures 2.9 X 2.0 X 2.0 cm with normal Doppler color flow Left ovary measures 3.1 X 2.6 X 1.5 cm with normal Doppler color flow No intrauterine gestational sac identified at this time. No ectopic seen. IMPRESSION: No intrauterine or ectopic identified. Differential diagnosis includes early intrauterine , nonvisualization ectopic , or completed miscarriage. Recommend HCG trending and follow-up ultrasound 7-14 days. ATED BY: KB LOFTON MD DICTATED DATE/TIME: 07/29/24 1202 SIGNED BY: KB LOFTON MD SIGNED DATE/TIME: 07/29/24 1202 CC: X-Ray, Labs, Meds, VS Comment External medical records reviewed: [None] Independent historians: [None] Social determinants of health: [None] Labs ordered: US, Urine , BHCG quant, RH type Reviewed and interpreted results: Urine positive, Leuko 3+, Blood 3+, HCG Quant 129.7 Radiology imaging ordered: US OB Transvaginal Treatments ordered: Keflex 500mg PO Procedures performed: None Critical care time: None Based on the history of present illness and physical exam, patient will be discharged home. Shared decision making: Patient instructed to follow up with their primary care physician in 1-2 days for re-evaluation of symptoms. Patient verbalizes understanding to return to ED for new or worsening symptoms of if follow up with PCP cannot be obtained. Patient understands and feels comfortable going home at this time. All questions addressed at time of discharge. Images Reviewed?: Images reviewed and evaluated by me Time of 1ST Reevaluation: 14:20 Reevaluation 1ST: Improved Patient Education/Counseling: Diagnosis, Treatment, Need For Follow Up Family Education/Counseling: Diagnosis, Treatment, Need For Follow Up Departure 1 Departure Time of Disposition: 14:19 Impression: Primary Impression: Threatened Additional Impressions: Miscarriage, threatened, early UTI (urinary tract infection) Qualified Codes: N30.00 - Acute cystitis without hematuria Disposition: HOME / SELF CARE / HOMELESS Condition: Stable Additional Instructions: Follow up with PCP ad REHAB NURSE in 1-2 days. Take medications as prescribed. Return to ED for any new or worsening symptoms. e-Prescriptions Cephalexin Monohydrate (Cephalexin) 500 Mg Tab 1 TAB PO QID, #40 TAB Prov: SCOTT SNIDER MD 07/29/24 Discharged With: Self Critical Care Note Critical Care Time?: No Stability Stability form required: No I personally scribed for SCOTT SNIDER MD ([email or web address]) on 07/29/24 at 09:55. Electronically submitted by Richard Torres ([email or web address]). I personally scribed for SCOTT SNIDER MD (PAULA) on 07/29/24 at 10:49. Electronically submitted by Richard Torres ([email or web address]). I personally scribed for SCOTT SNIDER MD ([email or web address]) on 07/29/24 at 11:51. Electronically submitted by Richard Torres ([email or web address]). I personally scribed for SCOTT SNIDER MD ([email or web address]) on 07/29/24 at 12:55. Electronically submitted by Richard Torres ([email or web address]). SCOTT SNIDER MD Jul 29, 2024 09:55
[2024-07-29 09:57] LABS: Urine Bacteria FEW /hpf (None Seen); Urine Blood 3+ /uL (Negative); Urine Clarity Turbid (Clear); Urine Color Yellow (Yellow); Urine Mucus FEW (None Seen); Urine Protein, UAD TRACE (Negative); Urine Specific Gravity 1.022 (1.001-1.035); Urine Squamous Epithelial Cell MOD /hpf (<5); Urine Urobilinogen Normal (Negative); Urine WBC 12 /HPF (0-5); Urine pH 6.5 (5.0-9.0)
[2024-07-29] MEDS: CEPHALEXIN 250 MG CAP PO ONE (11:44)
[2024-07-29 11:46] VITALS: PULSE 84; RESP 24; O2SAT 99
--- NOTE | 2024-07-29 12:04 | DVH ---
OB ULTRASOUND <14 WEEKS: HISTORY: , vaginal bleed TECHNIQUE: Multiple real-time grayscale sonographic images of the pelvis with duplex doppler color fl ow, spectral and M-mode analysis. TRANSDUCERS: Transabdominal and transvaginal FINDINGS: The uterus measures 9.2 X 5.4 cm. The endometrium measures 5mm. There is trace fluid in the endometri al canal. Right ovary measures 2.9 X 2.0 X 2.0 cm with normal Doppler color flow Left ovary measures 3.1 X 2.6 X 1.5 cm with normal Doppler color flow No intrauterine gestational sac identified at this time. No ectopic seen. IMPRESSION: No intrauterine or ectopic identified. Differential diagnosis includes early intrauterine p regnancy, nonvisualization ectopic , or completed miscarriage. Recommend HCG trending and fo llow-up ultrasound 7-14 days.
[2024-07-29 13:29] VITALS: BP 135/80; PULSE 80; RESP 18; TEMP 97.8; O2SAT 100
[2024-07-29] MEDS ORDERED: CEPH500T PO (14:20)
== END 2024-07-29 14:31 | disposition home or self-care (01) ==
LOC: ER 09:10
DX: O20.0 Threatened abortion (principal); O23.41 Unspecified infection of urinary tract in pregnancy, first trimester; N39.0 Urinary tract infection, site not specified; Z90.49 Acquired absence of other specified parts of digestive tract; Z88.5 Allergy status to narcotic agent; Z87.440 Personal history of urinary (tract) infections; Z79.899 Other long term (current) drug therapy; Z3A.01 Less than 8 weeks gestation of pregnancy
CPT/HCPCS: 36415; 76801; 76817; 81001; 81025; 84702; 86901

== ENCOUNTER 2024-09-04 00:12 | Emergency (ER) | payer MEDICAID ==
[~2024-09-04] VITALS: Ht 157.5 cm; Wt 81.8 kg
[~2024-09-04 00:12] MED LIST changes: +CEPH500T PO
[2024-09-04 00:25] VITALS: BP 150/74; RESP 16; TEMP 98.5; O2SAT 100
--- NOTE | 2024-09-04 00:31 | ED.PDOC ---
HPI Comments 39 year old female with a Hx of Anxiety, UTI's presents to the ED for the c/c of Left Sided Chest pain w/ associated Dizziness, radiating back, and Left Shoulder pain. Pt states that her CP started 3x days ago but assumed it was just "heart burn". Pt states her pain has worsened to a Sharp, stabbing, pressure sensation w/ no alleviating factors at this time. No other associated symptoms, modifiers, recent injuries or sick contacts present at this time. Chief Complaint: Chest Pain Time Seen by MD: 00:26 Primary Care Provider: SHAMIR Watts Notes: Nurses Notes, Medications, Allergies Allergies: Coded Allergies: Acetaminophen (Verified Allergy, Unknown, 07/29/24) Hydrocodone (Verified Allergy, Unknown, 07/29/24) Codeine (Verified Adverse Reaction, Unknown, PAIN, 07/16/24) Home Meds Active Scripts Cephalexin Monohydrate (Cephalexin) 500 Mg Tab, 1 TAB PO QID, #40 TAB Prov:SCOTT SNIDER MD 07/29/24 Cephalexin (KEFLEX CAPSULE) 250 Mg Cp, 500 MG PO BID for 7 Days, #14 CAP Prov:DEEJAY PADILLA RESDIENT 07/19/24 Alprazolam (Xanax) 0.5 Mg Tb, 1 TAB PO BID PRN, #20 TAB Prov:SAVITA HARVEY 07/07/24 Information Source: Patient Mode of Arrival: Ambulatory Severity: Moderate Timing: Days Duration: Since onset, Days Prehospital treatment: None Location: Chest (L) Radiation: Back, Shoulder (L) Quality: Sharp, Stabbing, Pressure Onset: At Rest Cardiac Risk Factors: None PE Risk Factors: None History of: None Modifying Factors: Exertion Associated Signs and Symptoms: None Past Medical History PAST MEDICAL HISTORY: Anxiety, UTI'S Surgical History: Cholecystectomy ELEMENTARY READING SPECIALIST History: No Pertinent ELEMENTARY READING SPECIALIST History, Ectopic Family History Family History: Reviewed,noncontributory to illness Social History Smoker: Non-Smoker Alcohol: Denies ETOH Use Drugs: Denies Drug Use Lives In: Home Constitutional: denies: chills, diaphoresis, fatigue, fever, malaise, sweats, weakness, others EENTM: denies: blurred vision, double vision, ear bleeding, ear discharge, ear drainage, ear pain, ear ringing, eye pain, eye redness, hearing loss, mouth pain, mouth swelling, nasal discharge, nose bleeding, nose congestion, nose pain, photophobia, tearing, throat pain, throat swelling, voice changes, others Respiratory: denies: cough, hemoptysis, orthopnea, SOB at rest, shortness of breath, SOB with excertion, stridor, wheezing, others Cardiovascular: reports: chest pain; denies: dizzy spells, diaphoresis, Dyspnea on exertion, edema, irregular heart beat, left arm pain, lightheadedness, palpitations, PND, syncope, others Gastrointestinal: denies: abdomen distended, abdominal pain, blood streaked bowels, constipated, diarrhea, dysphagia, difficulty swallowing, hematemesis, melena, nausea, poor appetite, poor fluid intake, rectal bleeding, rectal pain, vomiting, others Genitourinary: denies: abnormal vagina bleeding, burning, dyspareunia, dysuria, flank pain, frequency, hematuria, incontinence, pain, , vagina disch arge, urgency, others Neurological: reports: dizziness; denies: fainting, headache, left sided numbness, left sided weakness, numbness, paresthesia, pre-existing deficit, right sided numbness, right sided weakness, seizure, speech problems, tingling, tremors, weakness, others Musculoskeletal: reports: back pain; denies: gout, joint pain, joint swelling, muscle pain, muscle stiffness, neck pain, others Integumetry: denies: bruises, change in color, change in hair/nails, dryness, laceration, lesions, lumps, rash, wounds, others Allergic/Immunocompromised: denies: Difficulty Healing, Frequent Infections, Hives, Itching, others Hematologic/Lymphatic: denies: anemia, blood clots, easy bleeding, easy bruising, swollen glands, others Endocrine: denies: excessive hunger, excessive sweating, excessive thirst, excessive urination, flushing, intolerance to cold, intolerance to heat, unexplained weight gain, unexplained weight loss, others Psychiatric: denies: anxiety, bipolar disorder, depression, hopeless, panic disorder, schizophrenia, sleepless, suicidal, others All Other Systems: Reviewed and Negative Physical Exam General Appearance: Moderate Distress, Normal, Obese HEENT: Normal ENT Inspection, Pharynx Normal, TMs Normal Neck: Full Range of Motion, Non-Tender, Normal, Normal Inspection Respiratory: Chest Non-Tender, Lungs Clear, No Accessory Muscle Use, No Respiratory Distress, Normal Breath Sounds Cardiovascular: No Edema, No JVD, No Murmur, No Gallop, Normal Peripheral Pulses, Tachycardia Breast Exam: Deferred Gastrointestinal: Non Tender, No Pulsatile Mass, Normal Bowel Sounds, Soft Genitalia: Deferred Pelvic: Deferred Rectal: Deferred Extremities: No calf tenderness, Normal capillary refill, Normal inspection, Normal range of motion, Non-tender, No pedal edema Musculoskeletal : Apperance: Normal Neurologic: Alert, No Motor Deficits, Normal Affect, Normal Mood, No Sensory Deficits Cerebellar Function: Normal Reflexes: Normal Skin: Dry, Normal Color, Warm Lymphatic: No Adenopathy Was a procedure done? Was a procedure done?: No CP Differential Dx Differential Diagnosis: A-fib, A-Flutter, Angina, Electrolyte Disorder, Heart Failure, Pulmonary Embolus Differential Diagnosis: CHF, HTN Accelerated, HTN Encephalopathy Differential Diagnosis: Angina, Aortic dissection, Chest Wall Pain, Cholelithiasis, Costochondritis, Gastritis, Pericarditis, Pneumonia, Pneumothorax, Pulmonary Embolus X-Ray, Labs, Meds, VS Vital Signs Date Time Temp Pulse Resp B/P (MAP) Pulse Ox O2 Delivery O2 Flow Rate FiO2 09/04/24 01:45 88 09/04/24 00:48 91 09/04/24 00:25 98.5 97 16 150/74 (99) 100 98.5 Lab Test 09/04/24 01:15 09/04/24 00:25 Range/Units Troponin I High Sensitivity < 3 L < 3 L </=34 ng/L White Blood Count 7.7 4.4-10.8 10^3/uL Red Blood Count 4.10 4.0-5.20 10^6/uL Hemoglobin 12.0 L 12.2-16.2 g/dL Hematocrit 36.1 36.0-46.0 % Mean Corpuscular Volume 88.0 80.0-100.0 fL Mean Corpuscular Hemoglobin 29.1 28.0-32.0 pg Mean Corpuscular Hemoglobin Concent 33.1 32.0-36.0 g/dL Red Cell Distribution Width 14.2 11.8-14.3 % Platelet Count 232 140-450 10^3/uL Mean Platelet Volume 9.2 6.9-10.8 fL Neutrophils (%) (Auto) 59.5 37.0-80.0 % Lymphocytes (%) (Auto) 29.9 10.0-50.0 % Monocytes (%) (Auto) 8.2 0.0-12.0 % Eosinophils (%) (Auto) 1.9 0.0-7.0 % Basophils (%) (Auto) 0.5 0.0-2.0 % Neutrophils # (Auto) 4.6 1.6-8.6 10 ^3/uL Lymphocytes # (Auto) 2.3 0.4-5.4 10 ^3/uL Monocytes # (Auto) 0.6 0-1.3 10 ^3/uL Eosinophils # (Auto) 0.1 0-0.8 10 ^3/uL Basophils # (Auto) 0 0-0.2 10 ^3/uL Nucleated Red Blood Cells 0.1 % Sodium Level 139 136-145 mmol/L Potassium Level 3.9 3.5-5.1 mmol/L Chloride Level 107 98-107 mmol/L Carbon Dioxide Level 26 20-31 mmol/L Anion Gap 6 5-15 Blood Urea Nitrogen 13 9-23 mg/dL Creatinine 0.81 0.550-1.02 mg/dL Glomerular Filtration Rate Calc 94 >90 mL/min BUN/Creatinine Ratio 16.0 10.0-20.0 Serum Glucose 90 74-106 mg/dL Calcium Level 8.9 8.7-10.4 mg/dL Total Bilirubin 0.5 0.2-1.0 mg/dL Aspartate Amino Transferase (AST) 17 13-40 U/L Alanine Aminotransferase (ALT) 13 7-40 U/L Alkaline Phosphatase 56 46-116 U/L Total Protein 6.8 5.7-8.2 g/dL Albumin 4.0 3.2-4.8 g/dL Time of 1ST Reevaluation: 00:56 Reevaluation 1ST: Unchanged Patient Education/Counseling: Diagnosis, Treatment, Need For Follow Up Family Education/Counseling: No Family Present SEPSIS Sepsis Screen Physician Orders Electrocardigram (09/04/24 00:16) Electrocardigram (09/04/24 01:16) Electrocardigram (09/04/24 03:16) Chest Portable (09/04/24 00:19) Vital Signs Date Time Temp Pulse Resp B/P (MAP) Pulse Ox O2 Delivery O2 Flow Rate FiO2 7/19/25 01:45 88 09/04/24 00:48 91 09/04/24 00:25 98.5 97 16 150/74 (99) 100 98.5 Laboratory Tests Test 09/04/24 00:25 White Blood Count 7.7 10^3/uL (4.4-10.8) Departure 1 Departure Time of Disposition: 02:30 Impression: Primary Impression: Atypical chest pain Disposition: HOME / SELF CARE / HOMELESS Condition: Stable Discharged With: Self Critical Care Note Critical Care Time?: No Stability Stability form required: No Heart Score Heart Score: Heart Score Response (Comments) Value History Slightly Suspicious 0 EKG Normal 0 Age <45 0 Risk Factors No known risk factors 0 Troponin Normal limit 0 Total 0 I personally scribed for ANURAG ALAN MD ([email or web address]) on 09/04/24 at 00:31. Electronically submitted by Hood Ramirez ([email or web address]). ANURAG ALAN MD Sep 04, 2024 00:31
[2024-09-04 00:37] LABS: Hematocrit 36.1 % (36.0-46.0); Hemoglobin 12.0 g/dL (12.2-16.2); Mean Corpuscular Hemoglobin 29.1 pg (28.0-32.0); Mean Corpuscular Volume 88.0 fL (80.0-100.0); Nucleated Red Blood Cells % 0.1 %
[2024-09-04 00:57] LABS: Alanine Aminotransferase 13 U/L (7-40); Albumin 4.0 g/dL (3.2-4.8); Alkaline Phosphatase 56 U/L (46-116); Anion Gap 6 (5-15); BUN/Creatinine Ratio 16.0 (10.0-20.0); Blood Urea Nitrogen 13 mg/dL (9-23); Calcium 8.9 mg/dL (8.7-10.4); Carbon Dioxide 26 mmol/L (20-31); Chloride 107 mmol/L (98-107); Glucose 90 mg/dL (74-106); Potassium 3.9 mmol/L (3.5-5.1); Sodium 139 mmol/L (136-145); Total Protein 6.8 g/dL (5.7-8.2)
[2024-09-04 00:58] LABS: Bilirubin, Total 0.5 mg/dL (0.2-1.0)
[2024-09-04 01:45] VITALS: PULSE 88
--- NOTE | 2024-09-04 04:08 | DVH ---
CHEST RADIOGRAPH Indication: chest pain Technique: Single frontal view of the chest was obtained COMPARISON: XY CHEST XRAY 1 VIEW on DOS: 07/06/24 FINDINGS: Lines and Tubes: None Lungs: Clear Pleura: No effusion. No pneumothorax. Cardiomediastinal contours: Unremarkable Bones: Unremarkable IMPRESSION: 1. No acute disease.
--- NOTE | 2024-09-07 08:40 | ECG ---
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
--- NOTE | 2024-09-07 08:41 | ECG ---
[facility] Test Date: 2024-09-04 Test Time: 01:45:01 Pat Name: ENMANUEL CAMP Department: ER Room: Gender: F Senior Internal Auditor: SUSANNAH : 1985 Requested By: ANURAG ALAN Order Number: [id number] Reading MD: Bon Zafar Measurements Intervals [place] Rate: 88 P: 7 [place]: 150 QRS: 98 QRSD: 77 T: 35 QT: 348 QTc: 421 Interpretive Statements Sinus rhythm Borderline right axis deviation Electronically Signed On 09-08-2024 15:48:51 PDT by Bon Zafar Please click the below link to view image of tracing.
== END 2024-09-04 03:35 | disposition home or self-care (01) ==
LOC: ER 00:12
DX: R07.89 Other chest pain (principal); F41.9 Anxiety disorder, unspecified; Z87.440 Personal history of urinary (tract) infections; Z90.49 Acquired absence of other specified parts of digestive tract; Z88.5 Allergy status to narcotic agent; Z79.899 Other long term (current) drug therapy
CPT/HCPCS: 36415; 71045; 80053; 84484; 85025; 93005